=== PATIENT | female | born 1980 ===

== ENCOUNTER 2016-07-28 03:11 | Emergency (ER) | payer BC ==
[2016-07-28] MEDS ORDERED: Ondansetron INJ* 2 MG/ML VIAL IV ONE (03:27)
[2016-07-28] MEDS ORDERED: NS 0.9% 1000 ML* 1,000 ML IV ONE (03:27)
[2016-07-28] MEDS ORDERED: Ketorolac INJ* 30 MG/ML 1 ML VIAL IV PUSH ONE (03:28)
[2016-07-28 04:22] LABS: Hematocrit 41 % (35-47); Hemoglobin 13.6 g/dl (12.0-16.0); Mean Corpuscular HGB Conc 33 g/dl (31-36); Mean Corpuscular Hemoglobin 30 pg (27-31); Mean Corpuscular Volume 90 fL (80-97); Mean Platelet Volume 9 um3 (7.4-10.4); Red Blood Count 4.54 10^6/ul (4.0-5.4); Red Cell Distribution Width 13 % (10.5-15); White Blood Count 7.7 10^3/ul (3.5-10.8)
[2016-07-28 04:33] LABS: Albumin 4.2 g/dL (3.2-5.2); BUN/Creatinine Ratio 19.5 (8-20); C Reactive Protein 1.05 mg/L (< 5.00); Calcium 9.1 mg/dL (8.6-10.3); EGFR African American 108.5 (>60); EGFR Non-African American 84.4 (>60); Globulin 2.9 g/dL (2-4); Potassium 3.7 mmol/L (3.5-5.0); Total Bilirubin 0.3 mg/dL (0.2-1.0); Total Protein 7.1 g/dL (6.4-8.9)
[2016-07-28] MEDS ORDERED: Iohexol 300* (CONTRAST) 10 ML SDV IV ONE (04:51)
--- NOTE | 2016-07-28 05:20 | ED ---
Renan Keane Billy, scribed for Oziel Vargas MD on 07/28/16 at 0339 . Abdominal Pain/Female - HPI Summary HPI Summary: Patient is a 36 year-old female coming to [facility] presenting with constant, sharp RUQ pain since 244. Severity 8/10. She states that she woke up from sleep with the pain. Worse with deep breaths. Pain radiates to the right shoulder. Denies urinary symptoms. - History of Current Complaint Chief Complaint: EDAbdPain Stated Complaint: ABD PAIN Time Seen by Provider: 07/28/16 03:27 Hx Obtained From: Patient Onset/Duration: Sudden Onset, Lasting Hours, Still Present Timing: Constant Severity Initially: Moderate Severity Currently: Moderate Pain Intensity: 8 Pain Scale Used: 0-10 Numeric Location: Discrete At: RUQ Radiates: Yes Radiates to: Other - shoulder (right) Character: Sharp Aggravating Factor(s): Deep Breaths Alleviating Factor(s): Nothing Associated Signs and Symptoms: Negative: Urinary Symptoms Allergies/Adverse Reactions: Allergies Allergy/AdvReac Type Severity Reaction Status Date / Time Clindamycin Allergy Unknown Verified 07/28/16 03:14 Reaction Details Doxycycline Allergy Unknown Verified 07/28/16 03:14 Reaction Details Latex Allergy Unknown Verified 07/28/16 03:14 Reaction Details Penicillins [PCN] Allergy Unknown Verified 07/28/16 03:14 Reaction Details PMH/Surg Hx/FS Hx/Imm Hx Respiratory History: Comment Only: Other Respiratory Problems/Disorders - 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 Neurological History: Reports: Hx Migraine Psychiatric History: Reports: Hx Anxiety Infectious Disease History: Yes Infectious Disease History: Denies: Traveled Outside the [place] in Last 30 Days - Family History Known Family History: Positive: Diabetes - Social History Occupation: Employed Full-time Alcohol Use: None Hx Substance Use: No Substance Use Type: Reports: None Hx Tobacco Use: No Smoking Status (MU): Never Smoked Tobacco Review of Systems Positive: Abdominal Pain Negative: dysuria, frequency Positive: Other - shoulder pain All Other Systems Reviewed And Are Negative: Yes Physical Exam Triage Information Reviewed: Yes Vital Signs On Initial Exam: Initial Vitals Temp Pulse Resp BP Pulse Ox 98.1 F 99 18 148/85 100 07/28/16 03:14 07/28/16 03:14 07/28/16 03:14 07/28/16 03:14 07/28/16 03:14 Vital Signs Reviewed: Yes Appearance: Positive: Well-Appearing, No Pain Distress Skin: Positive: Warm Head/Face: Positive: Normal Head/Face Inspection Eyes: Positive: EOMI ENT: Positive: Hearing grossly normal Neck: Positive: Supple Respiratory/Lung Sounds: Positive: Breath Sounds Present Cardiovascular: Positive: Normal Abdomen Description: Positive: Nontender, No Organomegaly, Soft Bowel Sounds: Positive: Present Musculoskeletal: Positive: Strength/ROM Intact Neurological: Positive: Sensory/Motor Intact, Alert, Oriented to Person Place, Time Diagnostics - Vital Signs Vital Signs Temp Pulse Resp BP Pulse Ox 07/28/16 03:14 98.1 F 99 18 148/85 100 - Laboratory Lab Results: Lab Results 07/28/16 07/28/16 07/28/16 Range/Units 04:00 04:00 04:00 WBC 7.7 (3.5-10.8) 10^3/ul RBC 4.54 (4.0-5.4) 10^6/ul Hgb 13.6 (12.0-16.0) g/dl Hct 41 (35-47) % MCV 90 (80-97) fL MCH 30 (27-31) pg MCHC 33 (31-36) g/dl RDW 13 (10.5-15) % Plt Count 339 (150-450) 10^3/ul MPV 9 (7.4-10.4) um3 Neut % (Auto) 62.5 (38-83) % Lymph % (Auto) 23.5 L (25-47) % [place] % (Auto) 8.3 (1-9) % Eos % (Auto) 3.9 (0-6) % Baso % (Auto) 1.8 (0-2) % Absolute Neuts (auto) 4.8 (1.5-7.7) 10^3/ul Absolute Lymphs (auto) 1.8 (1.0-4.8) 10^3/ul Absolute Monos (auto) 0.6 (0-0.8) 10^3/ul Absolute Eos (auto) 0.3 (0-0.6) 10^3/ul Absolute Basos (auto) 0.1 (0-0.2) 10^3/ul Absolute Nucleated RBC 0 10^3/ul Nucleated RBC % 0 Sodium 136 (133-145) mmol/L Potassium 3.7 (3.5-5.0) mmol/L Chloride 104 (101-111) mmol/L Carbon Dioxide 25 (22-32) mmol/L Anion Gap 7 (2-11) mmol/L BUN 15 (6-24) mg/dL Creatinine 0.77 (0.51-0.95) mg/dL Est GFR ( Amer) 108.5 (>60) Est GFR (Non-Af Amer) 84.4 (>60) BUN/Creatinine Ratio 19.5 (8-20) Glucose 88 (70-100) mg/dL Lactic Acid 1.5 (0.5-2.0) mmol/L Calcium 9.1 (8.6-10.3) mg/dL Magnesium 2.0 (1.9-2.7) mg/dL Total Bilirubin 0.30 (0.2-1.0) mg/dL AST 16 (13-39) U/L ALT 19 (7-52) U/L Alkaline Phosphatase 68 (34-104) U/L C-Reactive Protein 1.05 (< 5.00) mg/L Total Protein 7.1 (6.4-8.9) g/dL Albumin 4.2 (3.2-5.2) g/dL Globulin 2.9 (2-4) g/dL Albumin/Globulin Ratio 1.4 (1-3) Lipase 28 (11.0-82.0) U/L Result Diagrams: 07/28/16 04:00 07/28/16 04:00 Lab Statement: Any lab studies that have been ordered have been reviewed, and results considered in the medical decision making process. - CT abd/pel w CT Interpretation Completed By: Radiologist - Moderate-sized hiatal hernia. No localizing signs for acute pathology. - EKG 0326 EKG Interpretation: NSR 74 bpm, no ST elevation Re-Evaluation - Re-Evaluation First Eval Re-Evaluation Time: 06:26 Change: Improved Abdominal Pain Fem Course/Dx - Diagnoses Provider Diagnoses: Hiatal hernia Discharge - Discharge Plan Condition: Improved Disposition: HOME Patient Education Materials: Hiatal Hernia (ED), Diet for Ulcers and Gastritis (ED) Referrals: Sandip Burton MD [Primary Care Provider] - The documentation as recorded by the Renan [email or web address] accurately reflects the service I personally performed and the decisions made by me, Oziel Vargas MD.
[2016-07-28 05:23] LABS: Urine Bilirubin Negative (Negative); Urine Glucose Negative (Negative); Urine Nitrite Negative (Negative)
[2016-07-28 06:56] VITALS: BP 111/61
--- NOTE | 2016-07-28 08:07 | RAD ---
CLINICAL HISTORY: Abdominal pain COMPARISON: None TECHNIQUE: Contrast enhanced CT examination of the abdomen and pelvis from the lung bases through the initial tuberosities. The patient received 110 mL Omnipaque 300 intravenously prior to imaging.The patient received oral contrast as well prior to imaging. FINDINGS: VISUALIZED LUNG BASES: The visualized lung bases are grossly clear. There is no pleural effusion. ABDOMEN AND PELVIS: The liver, spleen, pancreas and adrenal glands are grossly normal in appearance. The gallbladder is normal. The kidneys are normal in appearance without focal mass, calcification or signs of hydronephrosis. There are contrast has progressed as far as the transverse colon. The small and large bowel are not distended. The appendix is not visualized consistent with the patient's history of appendectomy. There is no gross retroperitoneal or mesenteric lymphadenopathy. The pelvic viscera is normal in appearance. The abdominal aorta and iliac arteries are normal in course and diameter. There are no sinister bone lesions. IMPRESSION: Normal CT examination.
== END 2016-07-28 06:26 | disposition home or self-care (01) ==
LOC: ED 03:11
DX: K44.9 Diaphragmatic hernia without obstruction or gangrene (principal); R10.11 Right upper quadrant pain
CPT/HCPCS: 36415; 74177; 80053; 81003; 83605; 83690; 83735; 85025; 86140; 93005; 99282; J1885; J2405; Q9967